=== PATIENT | female | born 2005 | race Caucasian/White ===

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

== ENCOUNTER 2024-01-03 12:18 | Outpatient (CLI) | payer OTHER, SELFPAY ==
[2024-01-03 12:30] VITALS: BP 111/83; PULSE 97; RESP 16; TEMP 36.6; O2SAT 100; BMI 30.7
[2024-01-03 12:32] VITALS: BMI 30.7
[2024-01-03 12:53] LABS: Microscopic, Urine URINE MICROSCOPIC (MICROSCOPIC)
[2024-01-03 13:05] LABS: Appearance,Urine CLEAR (Clear); Bilirubin,Urine Negative (Negative); Blood, Urine Negative (Negative); Color,Urine YELLOW (Yellow); Glucose,Urine (UA) Negative (Negative); Ketones,Urine Negative (Negative); Leukocyte Esterase,Urine 1+ (Negative); Nitrate,Urine Negative (Negative); Protein,Urine Negative (Negative); Specific Gravity, Urine 1.015 (1.005-1.030)
[2024-01-03 13:34] LABS: Amorphous Sediment,Urine 1+ /lpf; Bacteria,Urine Trace /lpf; RBC,Urine Occasional #/hpf (0-3)
[2024-01-03] MEDS: CYCLOBENZAPRINE 10MG TABLET 10 MG PO (13:40)
[2024-01-03] MEDS: ACETAMINOPHEN 500MG TAB 1000 MG PO (14:36)
[2024-01-03 14:52] LABS: Benzodiazepines Screen,Urine Negative ng/ml (<200)
[2024-01-03 14:53] LABS: Amphetamine/Metha Screen,Urine Negative ng/ml (<1000)
[2024-01-03 14:54] LABS: Cocaine Screen,Urine Negative ng/ml (<300)
[2024-01-03 14:55] LABS: Methadone Screen,Urine Negative ng/ml (<300)
[2024-01-03 14:56] LABS: Opiate Screen,Urine Negative ng/ml (<300)
[2024-01-03 15:03] LABS: Cannabinoid Screen,Urine Negative ng/ml (<50)
[2024-01-03 15:05] LABS: Phencyclidine Screen,Urine Negative ng/ml (<25)
[2024-01-03 15:35] LABS: Barbiturates Screen,Urine Negative ng/ml (<200)
== END 2024-01-03 14:52 | disposition home or self-care (01) ==
LOC: OBOUT 12:19 → OB 12:20
PROVIDERS: PCP Physician Assistant; Visit Provider Obstetrics & Gynecology
DX: O26.893 Other specified pregnancy related conditions, third trimester (principal); Z3A.37 37 weeks gestation of pregnancy; M54.50 Low back pain, unspecified; B96.89 Other specified bacterial agents as the cause of diseases classified elsewhere
CPT/HCPCS: 59025; 80307; 81001; 87086

== ENCOUNTER 2024-01-07 23:50 | Outpatient (CLI) | payer OTHER, SELFPAY ==
[2024-01-07 23:59] VITALS: BMI 30.7
[2024-01-08 00:12] VITALS: BP 116/69; PULSE 119; RESP 19; TEMP 36.4; O2SAT 98; BMI 30.8
[2024-01-08 00:32] LABS: Microscopic, Urine URINE MICROSCOPIC (MICROSCOPIC)
[2024-01-08 00:34] LABS: Appearance,Urine CLEAR (Clear); Bilirubin,Urine Negative (Negative); Blood, Urine Negative (Negative); Color,Urine YELLOW (Yellow); Glucose,Urine (UA) Negative (Negative); Ketones,Urine Negative (Negative); Leukocyte Esterase,Urine TRACE (Negative); Nitrate,Urine Negative (Negative); PH,Urine 6.5 (5.0-8.5); Protein,Urine Negative (Negative)
[2024-01-08 00:44] LABS: Barbiturates Screen,Urine Negative ng/ml (<200)
[2024-01-08 00:45] LABS: Benzodiazepines Screen,Urine Negative ng/ml (<200)
[2024-01-08 00:46] LABS: Amphetamine/Metha Screen,Urine Negative ng/ml (<1000); Cannabinoid Screen,Urine Negative ng/ml (<50)
[2024-01-08 00:47] LABS: Bacteria,Urine Trace /lpf; Cocaine Screen,Urine Negative ng/ml (<300)
[2024-01-08 00:48] LABS: Methadone Screen,Urine Negative ng/ml (<300); Opiate Screen,Urine Negative ng/ml (<300); WBC,Urine Occasional #/hpf (0-3)
[2024-01-08 00:49] LABS: Phencyclidine Screen,Urine Negative ng/ml (<25)
== END 2024-01-08 01:06 | disposition home or self-care (01) ==
LOC: OBOUT 23:52 → OB 23:53
PROVIDERS: PCP Physician Assistant; Visit Provider Nurse Practitioner Obstetrics & Gynecology
DX: O26.893 Other specified pregnancy related conditions, third trimester (principal); Z3A.37 37 weeks gestation of pregnancy
CPT/HCPCS: 80307; 81001; G0463

== ENCOUNTER 2024-01-21 19:19 | Outpatient (CLI) | payer OTHER, SELFPAY ==
[2024-01-21 19:33] VITALS: BMI 32.3
[2024-01-21 19:56] LABS: Microscopic, Urine URINE MICROSCOPIC (MICROSCOPIC)
[2024-01-21 19:58] LABS: Appearance,Urine CLEAR (Clear); Bilirubin,Urine Negative (Negative); Blood, Urine Negative (Negative); Color,Urine YELLOW (Yellow); Glucose,Urine (UA) Negative (Negative); Ketones,Urine Negative (Negative); Leukocyte Esterase,Urine 1+ (Negative); Nitrate,Urine Negative (Negative); Protein,Urine Negative (Negative); Urobilinogen,Urine 0.2 EU/dl (0.2)
[2024-01-21 20:05] VITALS: BP 127/74; PULSE 83; RESP 19; TEMP 36.4; O2SAT 98; BMI 32.3
[2024-01-21 20:12] LABS: Amphetamine/Metha Screen,Urine Negative ng/ml (<1000); Barbiturates Screen,Urine Negative ng/ml (<200)
[2024-01-21 20:13] LABS: Benzodiazepines Screen,Urine Negative ng/ml (<200); Cannabinoid Screen,Urine Negative ng/ml (<50)
[2024-01-21 20:14] LABS: Cocaine Screen,Urine Negative ng/ml (<300)
[2024-01-21 20:15] LABS: Methadone Screen,Urine Negative ng/ml (<300)
[2024-01-21 20:16] LABS: Phencyclidine Screen,Urine Negative ng/ml (<25)
[2024-01-21 20:18] LABS: Amorphous Sediment,Urine Trace /lpf; Bacteria,Urine 1+ /lpf
[2024-01-21 20:23] LABS: Opiate Screen,Urine Negative ng/ml (<300)
== END 2024-01-21 22:54 | disposition home or self-care (01) ==
LOC: OBOUT 19:20 → OB 19:20
PROVIDERS: PCP Physician Assistant; Visit Provider Obstetrics & Gynecology
DX: O26.893 Other specified pregnancy related conditions, third trimester (principal); Z3A.39 39 weeks gestation of pregnancy; R11.2 Nausea with vomiting, unspecified; R19.7 Diarrhea, unspecified
CPT/HCPCS: 80307; 81001; 87086; G0463

== ENCOUNTER 2024-01-22 03:18 | Inpatient (IN) | payer OTHER, SELFPAY ==
[2024-01-22 03:05] VITALS: BMI 32.3
[2024-01-22 03:41] LABS: Basophils # 0.1 K/mm3 (0-0.2); Basophils % 0.7 % (0.1-2.0); Eosinophils # 0.1 K/mm3 (0.0-0.4); Eosinophils % 0.7 % (0.1-12.0); Hematocrit 34.2 % (37.0-47.0); Lymphocytes # 2.7 K/mm3 (0.7-4.5); Lymphocytes % 20.5 % (10-50); Mean Corpuscular HGB Conc 32.1 g/dL (31.8-35.4); Mean Corpuscular Hemoglobin 25.4 pg (27.0-31.2); Mean Corpuscular Volume 79.3 fl (81-99); Mean Platelet Volume 11.2 fl (7.4-10.4); Monocytes # 0.6 K/mm3 (0.1-1.0); Monocytes % 4.6 % (1.7-9.3); Neutrophils # 9.9 K/mm3 (1.8-7.8); Neutrophils % 73.6 % (37.0-80.0); Platelet Count 303 K/mm3 (142-424); Red Blood Count 4.32 M/mm3 (4.20-5.40); Red Cell Distribution Width 15.5 % (11.5-17.5); White Blood Count 13.4 K/mm3 (4.5-13.0)
[2024-01-22 03:44] VITALS: BP 126/88; PULSE 80; RESP 20; TEMP 36.9; O2SAT 98; BMI 32.3
[2024-01-22] MEDS: OXYTOCIN/RINGERS LACTATE 30 UNITS/500 ML BAG IV (05:08)
[2024-01-22] MEDS: DEXTROSE 5%-LACTATED RINGERS 1,000 ML 125 ML IV ×2 (05:08→13:11)
--- NOTE | 2024-01-22 13:36 | EXP.ANES.CKL ---
[facility] Disclaimer: The information contained in this section may have been updated after the patient was seen, as this information can be updated by other users. Medical History Acne Menometrorrhagia Laceration of foot I feel like there is probably some residual inflammation, but not infection Self mutilating behavior Anxiety Surgical History No significant past surgical history Family History Mother Heart attack Social History (Updated 01/22/24 @ 03:28 by Raeann Pereira RN) Smoking Status: Current every day smoker tobacco type: e-cigarettes alcohol intake: never substance use type: denies use and marijuana current occupational status: unemployed Travel in the last 8 weeks: None do you feel safe at home: Yes victim of physical abuse: No victim of emotional abuse: No victim of sexual abuse: No [facility] Anesthesia Checklist Patient Identification Patient Identification: Verbal (Name & ) Structural Data Admitted From: Inpatient Planned Operative Procedure/s: labor epidural Consent for Planned Operative Procedure(s) Verified: Yes Airway Assessment Mallampati Score:: Class II C-Spine Mobility Assessed: Yes TMJ Mobility Assessed: Yes Dentition: Good Dentition Neurological Assessment Level of Consciousness: Awake, Alert and Appropriate Anesthesia Plan Anesthesia Risk discussed: Yes Anesthesia Plan: Verified ASA Class: II Anesthesia Type: Epidural
--- NOTE | 2024-01-22 16:17 | P.HP_ITS ---
History of Present Illness *Admission Date: 01/22/24 *Reason for visit:: Labor *History of present illness: Nela Sorensen is a 18-year-old G1, P0 who presented to labor and delivery at 39 weeks and 4 days gestation with regular painful contractions. JASKARAN is 01/25/2024 based on 7-week ultrasound. Patient presented to labor and delivery last night with contractions and was noted to not be making cervical change and was sent home. She returned this morning with continued contractions and decision was made to admit her and augment her labor. On presentation she endorsed good movement, denies any vaginal bleeding or leakage of fluid. was uncomplicated. A+, antibody negative, rubella immune, hepatitis B negative, hepatitis C negative, RPR negative, HIV negative, gonorrhea and Chlamydia negative 1 hour GTT: 117 Low risk male: Papa GBS negative [facility] Disclaimer: The information contained in this section may have been updated after the patient was seen, as this information can be updated by other users. Medical History Acne Menometrorrhagia Laceration of foot I feel like there is probably some residual inflammation, but not infection Self mutilating behavior Anxiety Surgical History No significant past surgical history Family History Mother Heart attack Social History (Updated 01/22/24 @ 03:28 by Raeann Pereira RN) Smoking Status: Current every day smoker tobacco type: e-cigarettes alcohol intake: never substance use type: denies use and marijuana current occupational status: unemployed Travel in the last 8 weeks: None do you feel safe at home: Yes victim of physical abuse: No victim of emotional abuse: No victim of sexual abuse: No Review of Systems Review of Systems Review of systems (narrative): Review of Systems Constitutional: Denies fever, chills, and sweats Eyes: Denies vision change/ pain Respiratory: Denies cough and shortness of breath Cardiovascular: Denies chest pain and lightheadedness Gastrointestinal: Admits abdominal pain with contractions. Denies nausea, v omiting. Genitourinary: Denies dysuria and incontinence Musculoskeletal: Denies shoulder pain and back pain Neurological: Denies change in speech or headaches Meds Home Medications and Allergies Home Medications Medication Instructions Recorded Confirmed Type vits no.126-ferrous fum 1 tab PO DAILY VITAMIN SUPPLEMENT 10/13/23 01/22/24 History 28 mg iron-folic acid 800 mcg tablet (Classic ) New Prescriptions to Start Prescriptions: Allergies Allergy/AdvReac Type Severity Reaction Status Date / Time No Known Allergies Allergy Verified 01/22/24 03:54 Exam Data for Last 24 hours Vital signs and Labs for Last 24 Hours: Temp Pulse Resp BP Pulse Ox O2 Del Method 98.4 F 80 20 126/88 98 Room Air 01/22/24 03:44 01/22/24 03:44 01/22/24 03:44 01/22/24 03:44 01/22/24 03:44 01/22/24 03:44 Laboratory Results - last 24 hr 01/22/24 03:30: WBC 13.4 H, RBC 4.32, Hgb 11.0 L, Hct 34.2 L, MCV 79.3 L, MCH 25.4 L, MCHC 32.1, RDW 15.5, Plt Count 303, MPV 11.2 H, Neut % (Auto) 73.6, Lymph % (Auto) 20.5, [place] % (Auto) 4.6, Eos % (Auto) 0.7, Baso % (Auto) 0.7, Neut # (Auto) 9.9 H, Lymph # (Auto) 2.7, [place] # (Auto) 0.6, Eos # (Auto) 0.1, Baso # (Auto) 0.1, Blood Type A Positive, Antibody Screen Negative I & O for Last 24 hours: Intake & Output 01/19/24 01/20/24 01/21/24 01/22/24 23:59 23:59 23:59 23:59 Weight 193 lb 15.756 oz Narrative: General: patient is alert oriented in no acute distress and responds appropriately to questions. HEENT: NCAT, EOMI, moist mucous membranes, neck supple with full ROM Cardiovascular: RRR +S1/S2, no murmurs or rubs Pulmonary: Clear to auscultation bilaterally, nonlabored breathing, symmetric chest rise Abdominal: Gravid abdomen appropriate for gestation. No guarding, rebound, or tenderness noted. SVE: On admission the patient was so uncomfortable the RN was not able to adequately assess the cervix. After epidural patient was noted to be 4/70/-3 and soft. Extremities: trace edema, no tenderness or cyanosis noted Skin: Normal turgor, intact, warm. Negative for erythema, pallor, petechia, or lesions Neurologic: Negative for sensory or motor deficit Psychiatric: Normal affect, normal thought process, good judgment and insight, no depression or anxious mood appreciated. Constitutional Constitutional: no acute distress *Routine HEENT Exam Head: Present normocephalic and atraumatic Eye: Present EOMI, PERRL and normal accommodation; Absent conjunctival icterus, scleral injection, nystagmus or exophthalmos ENT: Present mucous membranes moist *Routine Neck Exam Neck: Present supple; Absent lymphadenopathy *Routine Respiratory Exam Respiratory: Present CTA bilaterally, normal respiratory effort, able to speak in complete sentences and symmetric chest movement; Absent accessory muscle use, decreased breath sounds, rales, respiratory distress, wheezes, distant breath sounds or diminished air movement *Routine Cardiovascular Exam Cardiovascular: Present RRR, Normal S1 and Normal S2; Absent murmur or gallop *Routine Abdominal Exam Abdominal: Present soft and normoactive bowel sounds; Absent tenderness, distended, rebound or guarding *Routine Rectal Exam Rectal:: deferred *Routine Genitalia Exam Genitalia:: normal female *Routine Extremities Exam Extremities: Absent cyanosis, clubbing or edema *Routine Skin Exam Skin: Present warm; Absent rash *Routine Neurological Exam Neurological: Present alert and oriented X3 Assessment and Plan *Assessment and plan (1) Current every day vaping: Status: Acute Category: Social Hx Code(s): Z72.89 - Other problems related to lifestyle (2) Intrauterine in teenager: Status: Acute Category: Medical Code(s): Z34.80 - Encounter for supervision of other normal , unspecified trimester (3) Anxiety: Status: Chronic Category: Medical Code(s): F41.9 - Anxiety disorder, unspecified (4) Depression: Status: Chronic Qualifiers: Depression Type: unspecified Qualified Code(s): F32.9 - Major depressive disorder, single episode, unspecified Category: Medical Code(s): F32.9 - Major depressive disorder, single episode, unspecified (5) 39 weeks gestation of : Status: Acute Category: Medical Code(s): Z3A.39 - 39 weeks gestation of (6) Active labor at term: Status: Acute Category: Medical Plan - Monitor vitals - Admit to L&D for induction of labor - Plan for induction with Pitocin, per protocol - External FHR and TOCO monitor - GBS neg/ Blood type: A+ - Hemoglobin: 11.0, Plt: 303 - Plan for epidural - Anticipate vaginal delivery of Male infant: [place] AROM at 1450, clear fluid. Infant and mother tolerated well.
[2024-01-22 20:24] VITALS: BP 112/76; PULSE 102; RESP 17; TEMP 36.8; O2SAT 100
[2024-01-22] MEDS: DEXTROSE 5%-LACTATED RINGERS 1,000 ML 500 ML IV (21:10)
[2024-01-22] MEDS: OXYTOCIN/RINGERS LACTATE 30 UNITS/500 ML BAG 999 UNITS IV (23:27)
[2024-01-22] MEDS: METHYLERGONOVINE MALEATE 0.2MG/ML INJ 0.200000000000000011 MG IM (23:34)
[2024-01-22] MEDS: OXYTOCIN/RINGERS LACTATE 30 UNITS/500 ML BAG 40 UNITS IV (23:43)
--- NOTE | 2024-01-22 23:52 | EXP.DN ---
Delivery Note Delivery Date:: 01/22/24 Delivery Time:: 11:23 Anesthesia Type: Epidural Was labor medically induced?: No Gestational age (weeks): 39 delivered prior to 39 weeks?: No Gender: Male at 1 minute: 9 at 5 minutes: 9 Delivery Procedure:: Preoperative diagnosis: 1. at 39 completed this weeks gestation, vertex 2. Rh positive 3. GBS negative Postoperative diagnosis: 1. at 39 completed this weeks gestation, vertex 2. Rh positive 3. GBS negative EBL: 400mL Specimen: 1. Cord blood Findings: 1. Liveborn viable male : Papa. Apgars 9/9 at 1 and 5 minutes respectively. Weight pending at time of dictation 2. First degree perineal laceration Complications: None Procedure: Nonoperative spontaneous vaginal delivery Nela is a 18-year-old G1, P0 who presented to labor and delivery at 39 weeks and 3 days gestation with regular painful contractions. She has not noted to be making cervical change and was sent home. She returned at 39 weeks and 4 days gestation, today, with continued regular painful contractions. Decision was made to admit her and augment her labor. Labor was augmented per Pitocin protocol. She experienced artificial rupture of membranes at 1450, clear fluid. She received an epidural for anesthesia. Nela progressed to complete. The infant was noted to be in MELVIN position. With effective maternal pushing there was a nonoperative spontaneous vaginal delivery at 2323. There was a nuchal cord x1 that was reduced without difficulty. The anterior right shoulder delivered, followed by the posterior shoulder without dystocia. The body and lower extremities delivered without difficulty. The was bulb suctioned and was crying immediately following delivery. The was placed on the maternal abdomen and greater than one minute was appreciated for delayed cord clamping. The umbilical cord was doubly clamped and cut. Cord blood was collected and sent for routine testing. The placenta delivered with cord traction and suprapubic contertraction and Pitocin was started. The uterus was firm, however there was significant bleeding coming from the cervix. 1 dose of IM Methergine was ordered. The perineum, vaginal gomez, cervix, and paraurethral area were inspected thoroughly. There was a first-degree perineal laceration. 1% Lidocaine, 10ml, was injected during the repair due to patient discomfort. The laceration was repaired in the usual fashion using 2-0 Vicryl suture. The laceration was hemostatic. The cervix and vaginal gomez were inspected and noted to be hemostatic. This concluded the delivery. The patient was counseled regarding the events of the delivery and repair. The patient tolerated the delivery well. All counts were correct by nursing. Mother and infant were doing well and bonding upon my leaving the delivery room. Placental Delivery Description: Spontaneous
[2024-01-23] MEDS: ACETAMINOPHEN 500MG TAB 1000 MG PO ×3 (00:03→17:43)
[2024-01-23] MEDS: IBUPROFEN 400 MG TABLET 800 MG PO ×3 (00:03→17:43)
[2024-01-23] MEDS: ONDANSETRON 4MG/2ML VIAL 4 MG IV (00:03)
[2024-01-23] MEDS: BENZOCAINE-MENTHOL SPRAY 56GM CAN TP (02:03)
[2024-01-23] MEDS: WITCH HAZEL 40 PADS/BOX 1 EACH TP (02:04)
[2024-01-23 05:48] VITALS: BP 90/62; PULSE 109; RESP 16; TEMP 36.8; O2SAT 98
[2024-01-23 07:05] LABS: Basophils # 0.1 K/mm3 (0-0.2); Basophils % 0.3 % (0.1-2.0); Eosinophils % 0.1 % (0.1-12.0); Hematocrit 31.4 % (37.0-47.0); Hemoglobin 10.1 g/dL (12.2-16.2); Lymphocytes # 1.5 K/mm3 (0.7-4.5); Lymphocytes % 8.5 % (10-50); Mean Corpuscular HGB Conc 32.3 g/dL (31.8-35.4); Mean Corpuscular Hemoglobin 25.6 pg (27.0-31.2); Mean Corpuscular Volume 79.5 fl (81-99); Mean Platelet Volume 10.5 fl (7.4-10.4); Monocytes # 0.8 K/mm3 (0.1-1.0); Monocytes % 4.7 % (1.7-9.3); Neutrophils % 86.4 % (37.0-80.0); Platelet Count 268 K/mm3 (142-424); Red Blood Count 3.95 M/mm3 (4.20-5.40); Red Cell Distribution Width 15.6 % (11.5-17.5); White Blood Count 17.4 K/mm3 (4.5-13.0)
[2024-01-23 07:08] LABS: MANUAL DIFFERENTIAL MANUAL DIFFERENTIAL (MANUAL DIFF)
[2024-01-23 07:43] LABS: Hypochromasia 1+; Lymphocytes % 8 % (10-50); Monocytes % 4 % (2-9); Neutrophils % 88 % (42-76); Platelet Estimate Normal; Total Cells Counted 100
[2024-01-23 07:44] LABS: Microcytosis 1+
[2024-01-23 08:39] VITALS: BP 127/77; PULSE 86; RESP 18; TEMP 36.4; O2SAT 96
--- NOTE | 2024-01-23 12:28 | EXP.ACUTE.PN ---
Subjective *Date: 01/23/24 *Time: 12:28 Interval history: PPD # 1 s/p Resting comfortably in bed. Pain controlled. Lochia appropriate. Breast feeding. Voiding without difficulty and passing flatus. Tolerating regular diet. Denies fever/chills, chest pain and shortness of breath. No headaches, vision changes, lightheadedness/dizziness. No lower extremity swelling. Ambulating well ad jerry. Medical Exam Vital signs and Labs for Last 24 Hours: Vital Signs Temp Pulse Resp BP Pulse Ox O2 Del Method 01/23/24 08:39 97.5 F L 86 18 127/77 96 Room Air 01/23/24 05:48 98.3 F 109 H 16 90/62 L 98 Room Air 01/22/24 20:24 98.3 F 102 H 17 112/76 100 Room Air Laboratory Results - last 24 hr 01/23/24 06:48: WBC 17.4 H D, RBC 3.95 L, Hgb 10.1 L, Hct 31.4 L, MCV 79.5 L, MCH 25.6 L, MCHC 32.3, RDW 15.6, Plt Count 268, MPV 10.5 H, Neut % (Auto) 86.4 H, Lymph % (Auto) 8.5 L, [place] % (Auto) 4.7, Eos % (Auto) 0.1, Baso % (Auto) 0.3, Neut # (Auto) 15.0 H, Lymph # (Auto) 1.5, [place] # (Auto) 0.8, Eos # (Auto) 0.0, Baso # (Auto) 0.1, Total Counted 100, Neutrophils % (Manual) 88 H, Lymphocytes % (Manual) 8 L, Monocytes % (Manual) 4, Platelet Estimate Normal, Hypochromasia 1+, Microcytosis 1+ I & O for Labs for Last 24 Hours: Intake & Output 01/20/24 01/21/24 01/22/24 01/23/24 23:59 23:59 23:59 23:59 Weight 193 lb 15.756 oz Head: Present atraumatic and normocephalic ENT: Present mucous membranes moist Neck: Present full ROM Respiratory: Present CTA bilaterally and normal respiratory effort Cardiac: Present Reg Rate and Rhythm GI: Present soft; Absent distention or tenderness Comments:: Uterine fundus firm and below umbilicus Rectal (female): Present deferred (female): Present deferred Extremities: Present normal inspection and full ROM; Absent edema or calf tenderness Neuro: Present alert, awake and moves all extremities Assessment and Plan *Assessment and plan (1) Status post vaginal delivery: Status: Acute Category: Surgical (2) 39 weeks gestation of : Status: Acute Category: Medical Code(s): Z3A.39 - 39 weeks gestation of (3) Active labor at term: Status: Acute Category: Medical (4) Current every day vaping: Status: Acute Category: Social Hx Code(s): Z72.89 - Other problems related to lifestyle (5) Acute blood loss anemia: Status: Acute Category: Medical Code(s): D62 - Acute posthemorrhagic anemia Plan Continue routine care Encouraged increased ambulation Plan d/c home tomorrow, PPD # 2
--- NOTE | 2024-01-23 14:02 | SW/DCPLANNER ---
Addendum entered by Fanny Lopez 01/26/24 06:59: Infant cord screen result is NEGATIVE. Original Note: I received a consult on this patient regarding THC at the beginning of . Patient tested positive for THC on 06/15/23. Patient urine drug screen was negative on the following dates: 09/06/23, 10/13/23, 12/21/23, 01/03/24, 01/08/24 and 01/21/24. Infant's urine is still pending at this time. Patient delivered male (Papa España) on 01/22/24. Infant's father (Jerome España 04) was present at the time of my visit. Patient, Jerome, infant and patient's parents (Misty and Zack Patel) will reside at [address] [place] [address] in [place] [address]. Patient's contact number is [phone]. Patient is established w/ WIC and is not interested in HANDS. Patient stated that she has the following items at home: crib, carseat, clothing, diapers and will be breast feeding. PED MD will be Dr Paula and patient stated that she will have transportation to all follow up appointments. Patient is planned to discharge home tomorrow 01/23 pending no setbacks. I will follow up w/ urine drug screen results once collected.
[2024-01-23] MEDS: PRENATAL MULTIVITAMIN W/IRON 1 EACH PO (17:44)
[2024-01-24 05:09] VITALS: BP 91/45; PULSE 62; RESP 16; TEMP 36.8; O2SAT 98
[2024-01-24] MEDS: BENZOCAINE-MENTHOL SPRAY 56GM CAN TP (11:07)
[2024-01-24] MEDS: WITCH HAZEL 40 PADS/BOX 1 EACH TP (11:07)
--- NOTE | 2024-01-24 11:19 | P.DS_ITS ---
General Admission date:: 01/22/24 Discharge date: 01/24/24 HPI HPI HPI: Nela Sorensen is a 18-year-old G1, P0 who presented to labor and delivery at 39 weeks and 4 days gestation with regular painful contractions. JASKARAN is 01/25/2024 based on 7-week ultrasound. Patient presented to labor and delivery last night with contractions and was noted to not be making cervical change and was sent home. She returned this morning with continued contractions and decision was made to admit her and augment her labor. On presentation she endorsed good movement, denies any vaginal bleeding or leakage of fluid. was uncomplicated. A+, antibody negative, rubella immune, hepatitis B negative, hepatitis C negative, RPR negative, HIV negative, gonorrhea and Chlamydia negative 1 hour GTT: 117 Low risk male: Papa GBS negative Hospital Course Hospital Course Hospital Course: Negative Caty is a 18-year-old G1, P1 day 2 from a normal spontaneous vaginal delivery. Routine , delivery, and course. Her hemoglobin dropped from 11.0 to 10.1. She is asymptomatic and does not have any problems at this. She delivered a 7 pound 16 ounce healthy male with Apgars of 9 and 9. She is ambulating tolerating p.o. without difficulty, dysuria, or nausea and vomiting. She desires discharge home. Routine discharge instructions reviewed with the patient and she voiced understanding. Exam Data for Last 24 hours Vital signs and Labs for Last 24 Hours: Temp Pulse Resp BP Pulse Ox O2 Del Method 98.3 F 62 16 91/45 L 98 Room Air 01/24/24 05:09 01/24/24 05:09 01/24/24 05:09 01/24/24 05:09 01/24/24 05:09 01/24/24 05:09 I & O for Last 24 hours: Intake & Output 01/21/24 01/22/24 01/23/24 01/24/24 23:59 23:59 23:59 23:59 Weight 193 lb 15.756 oz Narrative: General: patient is alert oriented in no acute distress and responds appropriately to questions. Appears to be in minimal pain. Sitting up in the chair and doing well HEENT: NCAT, EOMI, moist mucous membranes, neck supple with full ROM Cardiovascular: RRR +S1/S2, no murmurs or rubs Pulmonary: Clear to auscultation bilaterally, nonlabored breathing, symmetric chest rise Abdominal: Fundus below the umbilicus, firm, and tenderness appropriate for the period. Extremities: trace edema, no tenderness or cyanosis noted Skin: Normal turgor, intact, warm. Negative for erythema, pallor, petechia, or lesions Neurologic: Negative for sensory or motor deficit Psychiatric: Normal affect, normal thought process, good judgment and insight, no depression or anxious mood appreciated. Constitutional Constitutional: no acute distress *Routine HEENT Exam Head: Present normocephalic Eye: Present EOMI and PERRL ENT: Present mucous membranes moist *Routine Neck Exam Neck: Present supple; Absent lymphadenopathy *Routine Respiratory Exam Respiratory: Present CTA bilaterally *Routine Cardiovascular Exam Cardiovascular: Present RRR *Routine Abdominal Exam Abdominal: Present soft and normoactive bowel sounds; Absent tenderness *Routine Extremities Exam Extremities: Absent cyanosis, clubbing or edema *Routine Skin Exam Skin: Present warm; Absent rash *Routine Neurological Exam Neurological: Present alert and oriented X3 DS: Diagnosis Discharge Diagnosis (1) Status post vaginal delivery: Status: Acute (2) 39 weeks gestation of : Status: Acute Code(s): Z3A.39 - 39 weeks gestation of (3) Active labor at term: Status: Acute (4) Current every day vaping: Status: Acute Code(s): Z72.89 - Other problems related to lifestyle (5) Acute blood loss anemia: Status: Acute Code(s): D62 - Acute posthemorrhagic anemia Problem details: Stable. PPD#2 s/p -Doing well. VSS. Serial lochia and fundal checks. -A+/antibody negative -Bottle feeding, male -Desires circumcision, discussed risk and benefits and completed at this morning. No complications. -Contraception: Progesterone only pills -This morning I extensively discussed /baby blues with the patient discussed healthy presented and when she should expect symptoms to improve. We also discussed contraceptive methods and optimal spacing. -Follow-up 2 weeks for routine visit #Anemia -Hemoglobin: 11.0-->10.1 - asymptomatic anemia noted. Vitals stable. Continue monitoring. DC with Fe -EBL: 400mL -Continue PO at discharge home, discussed with pt -Dispo: home today pending mother/ status Meds Home Medications and Allergies Home Medications Medication Instructions Recorded Confirmed Type vits no.126-ferrous fum 1 tab PO DAILY VITAMIN SUPPLEMENT 10/13/23 01/22/24 History 28 mg iron-folic acid 800 mcg tablet (Classic ) acetaminophen 500 mg tablet 500 mg PO Q6H PRN fever #30 tabs 01/24/24 Rx ferrous sulfate 325 mg (65 mg 325 mg PO DAILY #30 tabs 01/24/24 Rx iron) tablet,delayed release ibuprofen 800 mg tablet 800 mg PO Q8H PRN pain #60 tabs 01/24/24 Rx sennosides 8.6 mg tablet (Senna 8.6 mg PO BIDP PRN Constipation 01/24/24 Rx Lax) #60 tabs New Prescriptions to Start Prescriptions: acetaminophen Lakeisha Leyva ferrous sulfate Lakeisha Leyva ibuprofen Lakeisha Leyva sennosides [Senna Lax] Lakeisha Leyva Allergies Allergy/AdvReac Type Severity Reaction Status Date / Time No Known Allergies Allergy Verified 01/22/24 03:54 Discharge Plan Disposition Patient Disposition: Home, Self-Care Discharge Order Discharge Orders: Discharge Order (Routine); Ordered 01/24/24 Ordered By: Lakeisha Leyva Follow up Plan Follow up with: Lakeisha Leyva DO [Staff Physician] - 02/09/24 2:00 pm Prescriptions/Medication Reconciliation: New sennosides [Senna Lax] 8.6 mg Tablet 8.6 mg PO BIDP PRN (Reason: Constipation) Qty: 60 2RF ibuprofen 800 mg tablet 800 mg PO Q8H PRN (Reason: pain) Qty: 60 2RF acetaminophen 500 mg tablet 500 mg PO Q6H PRN (Reason: fever) Qty: 30 3RF ferrous sulfate 325 mg (65 mg iron) tablet,delayed release (DR/EC) 325 mg PO DAILY Qty: 30 3RF Continued Classic 28 mg iron- 800 mcg tablet 1 tab PO DAILY Problem Reconciliation Problems Reviewed?: Yes Patient Discharge Instructions ACTIVITY: Continue current activity DIET: regular diet Additional Instructions: Congratulations on the delivery of your sweet baby boy. It is my privilege to be your doctor and I am so thankful I could be a part of your special day. Discharge: 1. Take 800 mg Ibuprofen every 8 hours as needed for pain. You can also take 500-1000 mg of Tylenol in between doses, every 6-8 hours. 2. Iron supplements can make you constipated. Colace can be taken 1-2 times per day as you need. You can take iron tablets every other day if constipation is too bad. 3. Nothing in the vagina for 6 weeks - no sex, douching, tampons. No tub baths 4. Do not lift greater than 15 pounds for 6 weeks, this is the equivalent of 2 gallons of milk. 5. Reasons to return to L&D or call On-Call doctor - fever (greater than 100.4) - heavy vaginal bleeding (soaking through 1 pad in less than 2 hours or passing clots that are egg sized) - vaginal discharge (malodorous and/or purulent) - severe headaches, leg tenderness/edema, or any other symptoms that warrant immediate medical attention. 6. depression/blues - Normal to feel anxious/overwhelmed for first 2 weeks - Talk to your doctor if: anxiety lasts over 2 weeks, trouble bonding with baby, withdrawing from other family members, thoughts of harming yourself or others Lakeisha Leyva DO [facility] [phone] *Nothing in the Vagina for 6 weeks* *No strenuous activity* *No heavy lifting* *No tub baths until okay's by * Patient Instructions: Depression, Hemorrhage, DI for Labor and Delivery, Vaginal , DI for Pre-eclampsia, [facility] Post Discharge Instructions Providers Primary Care Provider: Bridgette Yu Admit Provider: Lakeisha Leyva Attending Provider: Lakeisha Leyva
== END 2024-01-24 12:00 | disposition home or self-care (01) | DRG 807 ==
LOC: OBOUT 03:18 → OB 03:18
PROVIDERS: Admitting Provider Obstetrics & Gynecology; PCP Physician Assistant; Visit Provider Obstetrics & Gynecology
DX: O69.81X0 Labor and delivery complicated by cord around neck, without compression, not applicable or unspecified (principal); Z37.0 Single live birth; O70.0 First degree perineal laceration during delivery; Z3A.39 39 weeks gestation of pregnancy; O99.334 Smoking (tobacco) complicating childbirth
CPT/HCPCS: 59409; 36415; 59025; 80307; 81001; 85007; 85025; 86850; 87086; 94761; G0283; G0463; J2405

== ENCOUNTER 2025-09-06 14:51 | Outpatient (CLI) | payer OTHER, SELFPAY ==
--- OUTSIDE RECORDS SUMMARY | 2025-09-06 14:54 | XMS_ITS | Clinical Summary ---
Author Organization Healthcare Address [address] [place] [address] Care Team Providers Care Massage Coordinator Name Role Phone Bridgette Yu Primary Care Provider [phone] Family History Medical History Relation Name Comments Drug abuse Father Anxiety disorder Mother COPD Mother Cardiac disorder Mother Conversions - Other Mother major de pression Heart attack Mother Schizophrenia Mother Thyroid disease Mother Heart attack Mother's Sister Relation Name Status Comments Father Mother Mother's Sister Social History Tobacco Use Types Packs/Day Years Used Date Smoking Tobacco: Passive Smo ke Exposure - Never Smoker Alcohol Use Standard Drinks/Week Comments No 0 (1 standard drink = 0.6 oz pur e alcohol) Comments Unknown Sex and Gender Information Value Date Recorded Sex Assigned at Not on file Legal Sex Female 9:37 PM EDT Gender Identity Not on file Sexual Orientation Not on file Last Filed Vital Signs Vital Sign Reading Time Taken Comments Blood Pressure 112/70 06/13/2020 12:46 PM EDT Pulse 68 06/13/2020 12:46 PM EDT Temperature 37 C (98.6 F) 05/31/2018 10:19 AM EDT Respiratory Rate - - Oxygen Saturation - - Inhaled Oxygen Concentration - - Weight 71.7 kg (158 lb 1.1 oz) 06/13/2020 12:46 PM EDT Height 165 cm (5' 4.96 ) 06/13/2020 12:46 PM EDT Body Mass Index 26.34 06/13/2020 12:46 PM EDT Plan of Treatment Not on file Care Teams Massage Coordinator Relationship Specialty Start Date End Date Bridgette Yu PA [address] [place] [address] PCP - General 03/13/21
== END 2025-09-06 23:59 | disposition home or self-care (01) ==
LOC: LAB 14:52
PROVIDERS: PCP Physician Assistant; Visit Provider Obstetrics & Gynecology
DX: Z31.69 Encounter for other general counseling and advice on procreation (principal)
CPT/HCPCS: 36415; 84146